=== PATIENT | female | born 1945 | race Caucasian/White ===

== ENCOUNTER → 2017-06-18 | Outpatient (CLI) | payer MEDICARE, OTHER ==
[2017-06-18 13:40] LABS: BUN 10 mg/dL (7-18)
[2017-06-18 13:41] LABS: URINE BILIRUBIN - DIPSTICK NEGATIVE (NEG); URINE BLOOD NEGATIVE (NEG)
[2017-06-18 13:44] LABS: GFR (ESTIMATED) 49 ML/MIN (59-)
[2017-06-18 14:36] LABS: HEMOGLOBIN 12.5 g/dL (12.2-16.2); LYMPH # 1.9 K/mm3 (0.7-4.5); LYMPH % 25.3 % (10-50.0)
== END ==
LOC: CARL-LAB 09:38
PROVIDERS: Internal Medicine Nephrology
DX: N18.3 Chronic kidney disease, stage 3 (moderate) (principal)